=== PATIENT | female | born 1985 | race Two or more races ===

== ENCOUNTER 2017-11-20 14:00 | Inpatient (IN) | payer OTHER ==
[~2017-11-20] VITALS: Ht 165.1 cm; Wt 170.0 kg
[2017-12-24] MEDS ORDERED: PRENAISSANCE C1 EACH (09:09)
== END 2017-12-26 13:41 | disposition home or self-care (01) | DRG 775 ==
LOC: LDR 12-14 14:00 → SURG-SUITE 12-24 12:25
PROC: 0HQ9XZZ Repair Perineum Skin, External Approach (ICD-10-PCS; principal; 2017-12-24)
PROC: 10E0XZZ Delivery of Products of Conception, External Approach (ICD-10-PCS; 2017-12-24)
PROC: 4A1HXCZ Monitoring of Products of Conception, Cardiac Rate, External Approach (ICD-10-PCS; 2017-12-24)
PROC: 4A033R1 Measurement of Arterial Saturation, Peripheral, Percutaneous Approach (ICD-10-PCS; 2017-12-24)
DX: O70.0 First degree perineal laceration during delivery (principal); O36.63X0 Maternal care for excessive fetal growth, third trimester, not applicable or unspecified; Z37.0 Single live birth; Z3A.41 41 weeks gestation of pregnancy; Z22.330 Carrier of Group B streptococcus